=== PATIENT | female | born 1995 | race Native Hawaiian/Other Pacific Islander ===

== ENCOUNTER 2017-05-10 19:57 | Emergency (ER) | payer OTHER ==
[~2017-05-10] VITALS: Ht 157.5 cm; Wt 546.6 kg
[2017-05-10 21:18] VITALS: BP 120/75; TEMP 98.6
== END 2017-05-10 22:00 | disposition home or self-care (01) ==
LOC: ED 19:57
DX: O21.0 Mild hyperemesis gravidarum (principal)
CPT/HCPCS: 36415; 96360; 96372; 99284; J2405

== ENCOUNTER 2017-11-20 04:06 | Outpatient (CLI) | payer OTHER | END 2017-11-20 04:41 | disposition short-term general hospital (02) | LOC: AMB 04:06 | DX: O47.1 False labor at or after 37 completed weeks of gestation (principal) | CPT/HCPCS: A0425; A0427 ==

== ENCOUNTER 2018-06-23 19:02 | Outpatient (CLI) | payer OTHER | END 2018-06-23 19:12 | disposition short-term general hospital (02) | LOC: AMB 19:02 | DX: G40.89 Other seizures (principal) | CPT/HCPCS: A0425; A0427 ==

== ENCOUNTER 2018-06-23 19:18 | Inpatient (IN) | payer OTHER ==
[~2018-06-23] VITALS: Ht 157.5 cm; Wt 54.0 kg
[2018-06-23] VITALS (12 sets, daily range): BP systolic 106–126; BP diastolic 71–82; TEMP 96.2–97.5
[2018-06-23 19:39] LABS: PLATELET COUNT 258 K/uL (152-353)
[2018-06-23 19:50] LABS: POTASSIUM 3.9 mmol/L (3.6-5.2)
[2018-06-24] VITALS (34 sets, daily range): BP systolic 99–144; BP diastolic 63–93; TEMP 97.9–98.8; Ht 157.5 cm; Wt 54.0 kg
[2018-06-24 09:11] LABS: PLATELET COUNT 262 K/uL (152-353)
[2018-06-24 09:38] LABS: POTASSIUM 3.8 mmol/L (3.6-5.2)
[2018-06-25] VITALS (9 sets, daily range): BP systolic 106–131; BP diastolic 69–85; TEMP 98.1–98.2
== END 2018-06-25 10:50 | disposition home or self-care (01) | DRG 897 ==
LOC: ED 19:18 → ICU 22:30
PROVIDERS: Family Medicine; ADMIT Internal Medicine
DX: F19.188 Other psychoactive substance abuse with other psychoactive substance-induced disorder (principal); R41.82 Altered mental status, unspecified
CPT/HCPCS: 36415; 36600; 51702; 80053; 80307; 80320; 80329; 81000; 81025; 82550; 82805; 84443; 84484; 85027; 93005; 96360; 96361; 96375; 99285; J1885; J3490

== ENCOUNTER 2018-07-27 05:52 | Outpatient (CLI) | payer OTHER | END 2018-07-27 06:02 | disposition short-term general hospital (02) | LOC: AMB 05:52 | DX: T43.211A Poisoning by selective serotonin and norepinephrine reuptake inhibitors, accidental (unintentional), initial encounter (principal); Y92.018 Other place in single-family (private) house as the place of occurrence of the external cause | CPT/HCPCS: A0425; A0427 ==

== ENCOUNTER 2018-07-27 06:10 | Emergency (ER) | payer OTHER ==
[~2018-07-27] VITALS: Ht 157.5 cm; Wt 54.0 kg
[2018-07-27 06:23] VITALS: TEMP 97.3
[2018-07-27 06:48] LABS: PLATELET COUNT 172 K/uL (152-353)
[2018-07-27 06:58] LABS: POTASSIUM 3.9 mmol/L (3.6-5.2)
[2018-07-27 07:45] VITALS: BP 142/73
== END 2018-07-27 08:26 | disposition home or self-care (01) ==
LOC: ED 06:10
PROVIDERS: Family Medicine
PROC: 2W3CX1Z Immobilization of Right Lower Arm using Splint (ICD-10-PCS; principal; 2018-07-27)
DX: S52.124A Nondisplaced fracture of head of right radius, initial encounter for closed fracture (principal); F19.10 Other psychoactive substance abuse, uncomplicated
CPT/HCPCS: 80053; 80307; 81000; 85027; 99284

== ENCOUNTER 2018-08-03 21:26 | Outpatient (CLI) | payer OTHER | END 2018-08-03 21:37 | disposition short-term general hospital (02) | LOC: AMB 21:26 | DX: R10.30 Lower abdominal pain, unspecified (principal) | CPT/HCPCS: A0425; A0429 ==

== ENCOUNTER 2018-08-03 21:41 | Emergency (ER) | payer OTHER ==
[~2018-08-03] VITALS: Ht 157.5 cm; Wt 52.2 kg
[2018-08-03 23:24] VITALS: BP 102/63; TEMP 98.6
== END 2018-08-03 23:27 | disposition home or self-care (01) ==
LOC: ED 21:41
DX: N30.91 Cystitis, unspecified with hematuria (principal)
CPT/HCPCS: 81000; 87088; 99283